=== PATIENT | male | born 1950 | race Caucasian/White ===

== ENCOUNTER → 2016-08-04 | Outpatient (CLI) | payer MEDICARE, BC | LOC: GMAJ 10:28 | PROVIDERS: ATTEND Family Medicine | DX: I10 Essential (primary) hypertension (principal); Z85.46 Personal history of malignant neoplasm of prostate ==

== ENCOUNTER 2016-12-14 06:37 | Emergency (ER) | payer MEDICARE, BC ==
[2016-12-14 07:08] VITALS: BP 148/83; TEMP 97.3; O2SAT 98
--- NOTE | 2016-12-14 07:11 | ED.PDOC ---
History of Present Illness - General Chief Complaint: Skin/Abrasion/Tear Stated Complaint: sunburn face Time Seen by Provider: 12/14/16 06:37 Source: patient Exam Limitations: no limitations - History of Present Illness Initial Comments: Link Candelaria 66 y/o male stated he was building fence a week ago and got a sunburn on his face applied lotion since incident but seems getting worse noted blisters side of neck. Timing/Duration: getting worse, other - 7 days ago Severity: moderate Location: face Improving Factors: nothing Worsening Factors: nothing Associated Symptoms: itching, other - pain Allergies/Adverse Reactions: Allergies NO KNOWN ALLERGY Allergy (Verified 08/27/15 12:43) Home Medications: Ambulatory Orders Amlodipine Besylate [Norvasc] 5 mg PO DAILY 08/27/15 Aspirin [Aspirin Childrens] 81 mg PO DAILY 08/27/15 Bupropion HCl [Bupropion HCl Xl] 300 mg PO PRN 08/31/15 Carvedilol [Coreg] 25 mg PO BID 08/31/15 Cyclobenzaprine HCl [Flexeril] 10 mg PO PRN 08/31/15 Fenofibrate [Tricor] 145 mg PO DAILY 08/31/15 Losartan Potassium & Hydrochlo [Hyzaar 100-25 mg] 1 tab PO DAILY 08/31/15 Multiple Vitamins W/ Iron [Multiple Vitamins/Iron] 1 tab PO DAILY 08/31/15 [place]-3 Fatty Acids [Fish Oil] 1,000 mg PO DAILY 08/31/15 Omeprazole [PriLOSEC Cap] 20 mg PO PRN 08/31/15 hydrOXYzine PAMOATE [Vistaril] 25 mg PO PRN 08/31/15 Triamcinolone 0.1% Oint [Kenalog 0.1% Ointment] 420 gm TOP BID #1 tube 12/14/16 Review of Systems - Review of Systems Constitutional: States: no symptoms reported EENTM: States: no symptoms reported Respiratory: States: no symptoms reported Cardiology: States: no symptoms reported Gastrointestinal/Abdominal: States: no symptoms reported Genitourinary: States: no symptoms reported Musculoskeletal: States: no symptoms reported Skin: States: see HPI Neurological: States: no symptoms reported Past Medical History (General) - Patient Medical History Hx Congestive Heart Failure: No Hx Diabetes: Yes Hx Other PMH: Yes - prostate ca Surgical History: other - robotic prostatectomy - Social History Hx Tobacco Use: No Hx Chewing Tobacco Use: No Hx Alcohol Use: No Hx Substance Use: No Hx Substance Use Treatment: No Hx Depression: No Feels Threatened In Home Enviroment: No Hx Physical Abuse: No Hx Emotional Abuse: No - Activities of Daily Living Patient Lives Alone: No - Grooming Ability: Independent Eating (Feeding) Ability: Independent Toileting Ability: Independent Family Medical History - Family History Father Hx Family Hypertension: Yes Mother Family History: Unknown Living Status: Physical Exam - Physical Exam General Appearance: Alert, No apparent distress Eyes, Ears, Nose, Throat Exam: PERRL/EOMI, normal ENT inspection, TMs normal, pharynx normal Neck: non-tender, full range of motion, supple, normal inspection Cardiovascular/Chest: normal peripheral pulses, regular rate, rhythm, no edema Back Exam: normal inspection, no CVA tenderness Extremity: normal range of motion, non-tender, normal inspection, no calf tenderness Neurologic: no motor/sensory deficits, alert, normal mood/affect, oriented x 3 Skin Problem Location: face Skin Character: erythema, scales, vesicular Lymphatic: no adenopathy Departure - Departure Clinical Impression: Sunburn of first degree Time of Disposition: 07:14 Disposition: Discharge to Home or Self Care Departure Forms: ED Discharge - Pt. Copy, Patient Portal Self Enrollment Instructions: How to Avoid Sunburn, Sunburn (Alternative Therapy), DI for Sunburn Referrals: Hayden Brand MD [Primary Care Provider] - 1-2 Weeks Prescriptions: Triamcinolone 0.1% Oint [Kenalog 0.1% Ointment] 420 gm TOP BID #1 tube Home Medications: Ambulatory Orders Amlodipine Besylate [Norvasc] 5 mg PO DAILY 08/27/15 Aspirin [Aspirin Childrens] 81 mg PO DAILY 08/27/15 Bupropion HCl [Bupropion HCl Xl] 300 mg PO PRN 08/31/15 Carvedilol [Coreg] 25 mg PO BID 08/31/15 Cyclobenzaprine HCl [Flexeril] 10 mg PO PRN 08/31/15 Fenofibrate [Tricor] 145 mg PO DAILY 08/31/15 Losartan Potassium & Hydrochlo [Hyzaar 100-25 mg] 1 tab PO DAILY 08/31/15 Multiple Vitamins W/ Iron [Multiple Vitamins/Iron] 1 tab PO DAILY 08/31/15 [place]-3 Fatty Acids [Fish Oil] 1,000 mg PO DAILY 08/31/15 Omeprazole [PriLOSEC Cap] 20 mg PO PRN 08/31/15 hydrOXYzine PAMOATE [Vistaril] 25 mg PO PRN 08/31/15 Triamcinolone 0.1% Oint [Kenalog 0.1% Ointment] 420 gm TOP BID #1 tube 12/14/16 Additional Instructions: FOLLOW UP WITH PRIMARY MD 12/22/2016 patient to call for appointment as needed
== END 2016-12-14 07:36 | disposition home or self-care (01) ==
LOC: ER 06:37
DX: L55.0 Sunburn of first degree (principal); E11.9 Type 2 diabetes mellitus without complications; Z85.46 Personal history of malignant neoplasm of prostate; Z79.899 Other long term (current) drug therapy; Z79.82 Long term (current) use of aspirin

== ENCOUNTER 2017-05-28 05:46 | Day surgery (SDC) | payer MEDICARE ==
--- NOTE | 2017-05-27 11:13 | RAD ---
EXAM DESCRIPTION: Chest,2 Views CLINICAL HISTORY: 66 years Male, preop COMPARISON: None Available TECHNIQUE: PA/lateral FINDINGS: There is no cardiac or pulmonary abnormality. The lungs are clear. There is no effusion. IMPRESSION: 1. Normal two-view chest. Electronically signed by: Leopoldo Henderson MD 05/27/2017 11:12 AM CDT
[2017-05-28] MEDS ORDERED: LACTATED RINGERS 1,000 ML ONE (06:49)
[2017-05-28] MEDS ORDERED: ceFAZolin SODIUM 1 GM VIAL ONE (06:49)
[2017-05-28] MEDS ORDERED: SODIUM CHL 0.9% 100ML MINI-BAG 100 ML IVPB ONE (06:49)
[2017-05-28] MEDS ORDERED: LIDOCAINE 1% 10 ML VIAL INJ ONE (07:00)
[2017-05-28] MEDS ORDERED: ePHEDrine SULF 50 MG/ML ONE (07:00)
[2017-05-28] MEDS ORDERED: KETOROLAC TROMETHAMINE INJ 30 MG/ML VIAL ONE (07:00)
[2017-05-28] MEDS ORDERED: PROPOFOL 200 MG/20 ML VIAL IV ONE (07:00)
[2017-05-28] MEDS ORDERED: raNITIdine HCL INJ 25 MG/ML VIAL ONE (07:00)
[2017-05-28] MEDS ORDERED: SODIUM CHLORIDE 0.9% 50 ML VIAL ONE (07:00)
[2017-05-28] MEDS ORDERED: DEXAMETHASONE INJ 10 MG/ML VIAL ONE (07:00)
[2017-05-28] MEDS ORDERED: MIDAZOLAM INJ 2 MG/2 ML VIAL ONE (08:58)
[2017-05-28] MEDS ORDERED: MORPHINE SULFATE INJ 10 MG/ML VIAL ONE (09:00)
[2017-05-28] MEDS ORDERED: BUPIVACAINE 0.5% W/EPI 30 ML VIAL INJ ONE (09:37)
[2017-05-28] MEDS ORDERED: ELECTROLYTE-A 0 ML IVS ONE (11:01)
--- NOTE | 2017-05-28 11:28 | OP ---
DATE OF PROCEDURE: 05/28/17 PREOPERATIVE DIAGNOSIS: 1. Right inguinal hernia. POSTOPERATIVE DIAGNOSIS: 1. Right inguinal hernia. PROCEDURE: 1. Repair of right inguinal hernia with Surgimesh graft. SURGEON: Camden Brody MD. ELEMENTARY SCHOOL TEACHER'S AIDE: None. ANESTHESIA: General anesthesia and local infiltration of 0.25% Marcaine with epinephrine. INDICATION: The patient is a 66-year-old male who has had a tender mass which was first noted after coughing and sneezing significantly. It is reducible, consistent with a hernia. The patient was brought to the Surgical Suite today for herniorrhaphy after the risks, benefits and alternatives to the procedure were discussed and accepted. FINDINGS: He has a large indirect inguinal hernia and a general weakness of the floor of the canal without discrete hernia. No other pathology was identified. PROCEDURE: After adequate general endotracheal anesthesia was obtained, the patient was prepped and draped in the usual sterile manner. The right lower quadrant was infiltrated with local anesthesia. An oblique incision was made with a sharp knife. Dissection was carried down through the skin and subcutaneous tissue to the external oblique fascia using electrocautery and blunt dissection. The self-retaining retractor was placed at this level. The external oblique fascia was then opened in the direction of the fibers through the external ring. When this was done, The cord was then dissected free from the external oblique fascia and the floor of the canal. A half inch Srinivas drain was placed around it for traction. The cord was then explored with the large indirect hernia sac identified and dissected free from the cord down to the level of the external inguinal ring. The nerves were retracted superiorly and inferiorly. The hernia sac was then reduced below the floor of the canal. At this point, a Surgimesh patch was introduced under the floor of the canal and sutured circumferentially with interrupted 2-0 Vicryl sutures. When this was done, the wound was irrigated with saline. The floor of the canal was noted to be bulging, but without discrete hernia, so this was imbricated with interrupted 2-0 Vicryl sutures. The Surgimesh patch was then sutured around the cord in the usual manner again with care not to suture the nerves. When this was done, the wound was irrigated with saline. Hemostasis was noted to be adequate. The cord was then placed back in position in the canal. The external oblique fascia was then closed with running 3-0 Vicryl suture. There were holes in the external oblique fascia from the retractor and these were repaired with interrupted [id number] sutures of 3-0 Vicryl. When this was done, the cord and subcutaneous tissue above, below and lateral to the incision were infiltrated with local anesthesia. The Amanda's fascia was approximated with interrupted 3-0 Chromic suture. Skin edges were approximated with skin stapler. Sterile pressure dressing was applied. The scrotum was checked for position of the testicle, which was appropriate. The patient was awakened and taken to the Recovery Room in good and stable condition. Estimated blood loss was 50 to 100 mL. All sponge, needle and instrument counts were correct. #[id number] [facility]
[2017-05-28] MEDS ORDERED: HYDROcodone 5MG/APAP 325MG 1 EA TAB ONE (11:52)
[2017-05-28 12:36] VITALS: BP 127/81; TEMP 98.1; O2SAT 95
== END 2017-05-28 13:05 | disposition home or self-care (01) ==
LOC: AMB 05:46
PROVIDERS: ATTEND Surgery
DX: K40.90 Unilateral inguinal hernia, without obstruction or gangrene, not specified as recurrent (principal); I10 Essential (primary) hypertension; K21.9 Gastro-esophageal reflux disease without esophagitis; Z79.82 Long term (current) use of aspirin; Z79.899 Other long term (current) drug therapy
CPT/HCPCS: 00830; 36415; 36416; 49505; 71020; 80048; 81001; 82948; 85025; 93005; A4216; C1781; J0690; J1100; J1885; J2250; J2270; J2780; J3490; J7050; J7120

== ENCOUNTER → 2017-07-21 | Outpatient (CLI) | payer MEDICARE ==
--- NOTE | 2017-07-21 10:33 | RAD ---
EXAM DESCRIPTION: Hip,Right 2 Views CLINICAL HISTORY: HIP PAIN COMPARISON: None. TECHNIQUE: 2 views right FINDINGS: Marked loss of joint space is observed. Subchondral cyst formation is observed in the acetabulum and femoral head. Sclerosis of the femoral head and acetabular margin observed. No evidence for fracture seen. Some femoral head osteophyte formation is noted. IMPRESSION: Severe degenerative changes are observed in the right hip. Electronically signed by: Leopoldo Henderson MD 07/21/2017 10:32 AM [facility] [place]
--- NOTE | 2017-07-21 10:34 | RAD ---
EXAM DESCRIPTION: Pelvis CLINICAL HISTORY: HIP PAIN COMPARISON: None. TECHNIQUE: AP pelvis FINDINGS: Severe degenerative changes are observed in the right hip. The left hip is unremarkable. Mild degenerative changes are observed in the pubic symphysis. No evidence of fracture is seen. Injection granulomas are observed in the region of the right buttocks. IMPRESSION: Severe degenerative changes are observed in the right hip. Electronically signed by: Leopoldo Henderson MD 07/21/2017 10:33 AM [facility]
== END ==
LOC: RAD 07:41
PROVIDERS: ATTEND Orthopaedic Surgery
DX: M25.551 Pain in right hip (principal)

== ENCOUNTER → 2017-08-28 | Outpatient (CLI) | payer MEDICARE | LOC: GMAJ 12:07 | PROVIDERS: ATTEND Family Medicine | DX: Z12.5 Encounter for screening for malignant neoplasm of prostate (principal) ==

== ENCOUNTER 2017-09-23 06:06 | Day surgery (SDC) | payer MEDICARE ==
[~2017-09-23 06:06] MED LIST: LACTATED RINGERS 1,000 ML ONE
[2017-09-23] MEDS ORDERED: methylPREDNISolone ACETATE 80 MG/ML VIAL ONE (06:35)
[2017-09-23] MEDS ORDERED: LIDOCAINE 1% W/ EPINEPHRINE 20 ML VIAL INJ ONE (06:35)
[2017-09-23] MEDS ORDERED: BUPIVACAINE 0.25% INJ 30 ML VIAL INJ ONE (06:35)
[2017-09-23] MEDS ORDERED: fentaNYL CITRATE INJ 50 MCG/ML AMP ONE (07:52)
--- NOTE | 2017-09-23 08:40 | OP ---
DATE OF PROCEDURE: 09/23/17 PREOPERATIVE DIAGNOSIS: 1. Osteoarthritis of the right hip. POSTOPERATIVE DIAGNOSIS: 1. Osteoarthritis of the right hip. PROCEDURE: 1. Injection of right hip. SURGEON: Neil Beatty MD. TOUR COUNSELOR: Elvin Hinson CST, SA-C. ANESTHESIA: Conscious sedation. COMPLICATIONS: None. FINDINGS: Severe arthritis of the right hip. INDICATION: The patient has a history of severe hip pain associated with his arthritis. Because of his arthritis, he requested injection. After discussing the risks, benefits and alternatives to that, the patient has given informed consent for that. PROCEDURE: The patient was brought to the Operating Room and placed in supine position. Conscious sedation was administered and the leg was flexed, abducted and externally rotated. The groin was prepped and fluoroscopic imaging was used to confirm needle placement into the hip joint through a medial portal. Once placement had been confirmed, a combination of lidocaine and Depo-Medrol were injected into the joint. After injection, the needle was withdrawn. Pressure was held on the injection site. A sterile band-aid was placed. The patient was then taken back to the Day Surgery Unit. POSTOPERATIVE INSTRUCTIONS: The patient will be weight-bearing as tolerated. The patient will followup with us in about 10 days. #[id number] [facility]
[2017-09-23] MEDS ORDERED: LIDOCAINE 1% 10 ML VIAL INJ ONE (10:00)
[2017-09-23] MEDS ORDERED: PROPOFOL 200 MG/20 ML VIAL IV ONE (10:00)
[2017-09-23 10:13] VITALS: BP 133/75; TEMP 98.1; O2SAT 97
== END 2017-09-23 10:20 | disposition home or self-care (01) ==
LOC: AMB 06:06
PROVIDERS: ATTEND Orthopaedic Surgery
DX: M16.11 Unilateral primary osteoarthritis, right hip (principal); I10 Essential (primary) hypertension; I25.10 Atherosclerotic heart disease of native coronary artery without angina pectoris; Z85.46 Personal history of malignant neoplasm of prostate; Z79.899 Other long term (current) drug therapy
CPT/HCPCS: 01200; 20610; 76000; 87070; J1030; J3010; J3490; J7120

== ENCOUNTER 2017-12-08 05:44 | Day surgery (SDC) | payer MEDICARE ==
[2017-12-08] MEDS ORDERED: LACTATED RINGERS 1,000 ML ONE (06:53)
[2017-12-08] MEDS ORDERED: PROPOFOL 200 MG/20 ML VIAL IV ONE (10:00)
[2017-12-08] MEDS ORDERED: LIDOCAINE 1% W/ EPINEPHRINE 20 ML VIAL INJ ONE (12:24)
[2017-12-08] MEDS ORDERED: methylPREDNISolone ACETATE 80 MG/ML VIAL ONE (12:25)
[2017-12-08] MEDS ORDERED: BUPIVACAINE 0.25% INJ 30 ML VIAL INJ ONE (12:25)
[2017-12-08 15:17] VITALS: BP 127/75; TEMP 97; O2SAT 95
--- NOTE | 2017-12-09 09:20 | OP ---
DATE OF PROCEDURE: 12/08/17 PREOPERATIVE DIAGNOSIS: 1. Severe osteoarthritis. POSTOPERATIVE DIAGNOSIS: 1. Severe osteoarthritis. PROCEDURE: 1. Intraarticular injection. SURGEON: Neil Beatty MD. GRAB JACK WORKER: Elvin Hinson CST, SA-C. ANESTHESIA: Conscious sedation. COMPLICATIONS: None. FINDINGS: Severe osteoarthritis. INDICATION: The patient has a long history of severe pain that has been getting progressively worse. He has had pain that causes dysfunction in his daily life. Because of his ongoing discomfort and failure of more conservative measures, he has requested intraarticular injection. After discussing the risks , benefits and alternatives to that, the patient has given informed consent for that. PROCEDURE: The patient was brought to the Operating Room and placed in supine position. Conscious sedation was administered and the leg was flexed, abducted and externally rotated. The groin was prepped and fluoroscopic imaging was used to confirm needle placement into the hip joint through a medial portal. Once placement had been confirmed, a combination of lidocaine and Depo-Medrol were injected into the joint. After injection, the needle was withdrawn. Pressure was held on the injection site. A sterile band-aid was placed. The patient was then taken back to the Day Surgery Unit. POSTOPERATIVE INSTRUCTIONS: The patient will be weight-bearing as tolerated. The patient will followup with us in 10 days. #[id number] [facility]
== END 2017-12-08 13:05 | disposition home or self-care (01) ==
LOC: AMB 05:44
PROVIDERS: ATTEND Orthopaedic Surgery
DX: M16.11 Unilateral primary osteoarthritis, right hip (principal); I10 Essential (primary) hypertension; E11.9 Type 2 diabetes mellitus without complications; K21.9 Gastro-esophageal reflux disease without esophagitis; Z85.46 Personal history of malignant neoplasm of prostate; Z90.79 Acquired absence of other genital organ(s); Z79.82 Long term (current) use of aspirin; Z79.899 Other long term (current) drug therapy
CPT/HCPCS: 01200; 20611; 76000; J1030; J3490; J7120

== ENCOUNTER → 2018-01-06 | Outpatient (CLI) | payer MEDICARE | LOC: LAB.O 08:53 | PROVIDERS: ATTEND Orthopaedic Surgery | DX: Z01.818 Encounter for other preprocedural examination (principal) ==

== ENCOUNTER → 2018-01-25 | Outpatient (CLI) | payer MEDICARE ==
--- NOTE | 2018-01-25 11:11 | RAD ---
EXAM DESCRIPTION: Hip,Right 2 Views CLINICAL HISTORY: PAIN IN RIGHT HIP COMPARISON: 21 July 2017 TECHNIQUE: 2 views right FINDINGS: Loss of joint space is observed. Some sclerosis of the articular surfaces is observed. Subchondral cyst formation is observed in the acetabulum and femoral head. No fracturing is detected. Degenerative changes are observed in the lower lumbar spine. IMPRESSION: Moderately severe degenerative arthritis is observed in the hip. There is been no significant interval change. Electronically signed by: Leopoldo Henderson MD 01/25/2018 11:02 AM CDT
== END ==
LOC: RAD 08:00
PROVIDERS: ATTEND Orthopaedic Surgery
DX: M25.551 Pain in right hip (principal)

== ENCOUNTER 2018-01-26 05:54 | Inpatient (IN) | payer MEDICARE ==
--- NOTE | 2018-01-25 11:26 | HP ---
CHIEF COMPLAINT: Right hip pain. HISTORY OF PRESENT ILLNESS: Mr. Candelaria is a 67-year-old male with a history of severe pain in the hip. He has been getting progressively worse. He has had injection in the hip, anti-inflammatories and walks with an assistive device. However, he has failed to gain relief. Because of his ongoing symptoms , he has requested operative intervention. After discussing the risks, benefits and alternatives to total hip arthroplasty, the patient has given informed consent. PAST SURGICAL HISTORY: None. MEDICATIONS: 1. Amlodipine. 2. Cyclobenzaprine. 3. Fish oil. ALLERGIES: NO KNOWN DRUG ALLERGIES. CODE STATUS: Full code. IMMUNIZATIONS: Up to date. FAMILY HISTORY: None pertinent to today's complaint. SOCIAL HISTORY: The patient does not smoke or use any illicit drugs. He does drink on occasion. REVIEW OF SYSTEMS: Negative except as indicated in the History of Present Illness. PHYSICAL EXAMINATION: VITAL SIGNS: Blood pressure 150/82. Pulse 62. Height 6'1". Weight 214 pounds. MENTAL STATUS: The patient is awake, alert, and is able to give a good history and participate in the physical. The patient is oriented to person, place and time. SKIN: Normal tone and turgor. HEENT: Normocephalic, atraumatic. Pupils equal, round and reactive. Mucosal membranes are moist. NECK: Normal range of motion. No thyromegaly, no lymphadenopathy. CHEST: Normal respiratory excursion. CARDIAC: Regular rate and rhythm. No murmurs, rubs or gallops. MUSCULOSKELETAL: The bilateral upper extremities show full active range of motion. He has no deformity. There is no crepitus. Sensation is intact. They are warm and well perfused. The left lower extremity shows full range of motion of the hip and knee without significant discomfort. He has intact sensation. He has no malalignment. Strength is 5/5. The right lower extremity shows severe pain with flexion beyond about 90 degrees of the hip. He has 0 internal rotation and obligate external rotation. Abduction is about 30 degrees. He walks with an antalgic gait and also with an assistive device. Strength is 5/5 in the lower extremity. There is no obvious malalignment. IMAGING: X-rays show severe endstage arthritis. ASSESSMENT: Arthritis. PLAN: The plan at this point is for total hip arthroplasty. We have discussed the risks, benefits, and alternatives to that and the patient has given informed consent. #[id number] [facility]
[2018-01-26] MEDS ORDERED: LACTATED RINGERS 1,000 ML ONE (05:55)
[2018-01-26] MEDS ORDERED: VANCOMYCIN HCL INJ 1,000 MG VIAL IVPB ONE ×4 (05:55→20:19)
[2018-01-26] MEDS ORDERED: SODIUM CHL 0.9% 100ML MINI-BAG 100 ML IVPB ONE (05:55)
[2018-01-26] MEDS ORDERED: TRANEXAMIC ACID 1,000 MG/10 ML VIAL ONE ×2 (05:55→05:56)
[2018-01-26] MEDS ORDERED: ceFAZolin SODIUM 1 GM VIAL ONE ×2 (05:55→06:22)
[2018-01-26] MEDS ORDERED: SODIUM CHLORIDE 0.9% 100ML 100 ML IVPB ONE (05:56)
[2018-01-26] MEDS ORDERED: SODIUM CHLORIDE 0.9% 250ML 250 ML ONE ×3 (05:56→20:18)
[2018-01-26] MEDS ORDERED: MORPHINE SULF *EPIDURAL* 1 MG/ML VIAL ONE (06:21)
[2018-01-26] MEDS ORDERED: fentaNYL CITRATE INJ 50 MCG/ML AMP ONE (06:21)
[2018-01-26] MEDS ORDERED: ACETAMINOPHEN IV 1000MG 100 ML ONE (06:21)
[2018-01-26] MEDS ORDERED: MIDAZOLAM INJ 2 MG/2 ML VIAL ONE (06:21)
[2018-01-26] MEDS ORDERED: ROCURONIUM BROMIDE 10 MG/ML VIAL ONE (06:21)
[2018-01-26] MEDS ORDERED: BUPIVACAINE 0.5% W/EPI 30 ML VIAL INJ ONE (06:22)
[2018-01-26] MEDS ORDERED: PROMETHAZINE HCL INJ 12.5 MG in SODIUM CHLORIDE 0.9% 50ML 50 ML IVPB PRN (06:46)
[2018-01-26] MEDS ORDERED: TRANEXAMIC ACID INJ 1,000 MG in SODIUM CHLORIDE 0.9% 100ML 100 ML IVPB ONE (06:46)
[2018-01-26] MEDS ORDERED: ZOLPIDEM TARTRATE 5 MG TAB PO PRN (06:46)
[2018-01-26] MEDS ORDERED: SODIUM CHLORIDE 0.9% (FLUSH) 10 ML SYG IV PRN (06:46)
[2018-01-26] MEDS ORDERED: ACETAMINOPHEN 500 MG TAB PO PRN (06:46)
[2018-01-26] MEDS ORDERED: NALOXONE HCL INJ 0.4 MG/ML VIAL IV PRN (06:46)
[2018-01-26] MEDS ORDERED: ACETAMINOPHEN 325 MG TAB PO PRN (06:46)
[2018-01-26] MEDS ORDERED: MORPHINE SULFATE INJ 10 MG/ML VIAL IM PRN (06:46)
[2018-01-26] MEDS ORDERED: BISACODYL SUPPOSITORY 10 MG PR PRN (06:46)
[2018-01-26] MEDS ORDERED: TEMAZEPAM 15 MG CAP PO PRN (06:46)
[2018-01-26] MEDS ORDERED: traMADol HCL 50 MG TAB PO PRN (06:46)
[2018-01-26] MEDS ORDERED: ALUMINUM & MAGNESIUM HYDROXIDE 30 ML UD PO PRN (06:46)
[2018-01-26] MEDS ORDERED: PROMETHAZINE HCL INJ 25 MG in SODIUM CHLORIDE 0.9% 50ML 50 ML IVPB PRN (06:46)
[2018-01-26] MEDS ORDERED: MAGNESIUM HYDROXIDE 30 ML UD PO PRN (06:46)
[2018-01-26] MEDS ORDERED: BENZOCAINE-MENTH LOZ (CEPACOL) 1 EA LOZ MT PRN (06:46)
[2018-01-26] MEDS ORDERED: DEX 5% W/NACL 0.45% 1000ML 1,000 ML IVS PRN (06:46)
[2018-01-26] MEDS ORDERED: PHENYLEPHRINE INJ 1ML 10 MG/ML VIAL ONE (07:00)
[2018-01-26] MEDS ORDERED: METOCLOPRAMIDE HCL INJ 10 MG/2 ML VIAL ONE (07:00)
[2018-01-26] MEDS ORDERED: MORPHINE PCA 1 MG/ML 100 ML BAG IVPB SCH (07:00)
[2018-01-26] MEDS ORDERED: raNITIdine HCL INJ 25 MG/ML VIAL ONE (07:00)
[2018-01-26] MEDS ORDERED: ePHEDrine SULF 50 MG/ML ONE (07:00)
[2018-01-26] MEDS ORDERED: SODIUM CHLORIDE 0.9% 50 ML VIAL ONE (07:00)
[2018-01-26] MEDS ORDERED: PROPOFOL 200 MG/20 ML VIAL IV ONE (07:00)
[2018-01-26] MEDS ORDERED: DEXAMETHASONE INJ 10 MG/ML VIAL ONE (07:00)
[2018-01-26] MEDS: VANCOMYCIN HCL INJ 1,000 MG VIAL IVPB ONE ×2 (07:48→09:03)
[2018-01-26] MEDS: BUPIVACAINE 0.25% W/EPI 50 ML VIAL INJ ONE ×2 (07:48→09:31)
[2018-01-26] MEDS: ceFAZolin SODIUM 1 GM VIAL ONE ×2 (07:48→09:03)
[2018-01-26] MEDS ORDERED: ELECTROLYTE-A 1,000 ML IVS ONE ×2 (08:21→09:01)
[2018-01-26] MEDS: ONDANSETRON INJ 4 MG/2 ML VIAL IV PRN (10:20)
[2018-01-26] MEDS: HYDROmorphone HCL INJ 2 MG/ML VIAL ONE ×2 (10:35→10:52)
--- NOTE | 2018-01-26 11:28 | RAD ---
EXAM DESCRIPTION: Pelvis (accession [id number]), Hip,Right 2 Views (accession [id number]) CLINICAL HISTORY: 67 years Male, post op COMPARISON: July 21, 2017 FINDINGS: A single view of the pelvis demonstrates right total hip replacement with satisfactory alignment. This prosthesis is new since prior study. Milder degenerative changes involving the opposite left hip are noted. Right femoral head and neck have been resected. Periprosthetic fractures are not apparent. Two views of the right hip demonstrate total hip prosthesis has been placed with satisfactory alignment with no evidence of dislocation or periprosthetic fracture. Trochanteric region and proximal femoral shaft are intact. Soft tissue gas from surgical placement is noted. IMPRESSION: Satisfactory postoperative imaging of right hip replacement and intact pelvis and proximal femoral shaft. Electronically signed by: Shad Doty MD 01/26/2018 11:27 AM CDT
--- NOTE | 2018-01-26 11:28 | RAD ---
EXAM DESCRIPTION: Pelvis (accession [id number]), Hip,Right 2 Views (accession [id number]) CLINICAL HISTORY: 67 years Male, post op COMPARISON: July 21, 2017 FINDINGS: A single view of the pelvis demonstrates right total hip replacement with satisfactory alignment. This prosthesis is new since prior study. Milder degenerative changes involving the opposite left hip are noted. Right femoral head and neck have been resected. Periprosthetic fractures are not apparent. Two views of the right hip demonstrate total hip prosthesis has been placed with satisfactory alignment with no evidence of dislocation or periprosthetic fracture. Trochanteric region and proximal femoral shaft are intact. Soft tissue gas from surgical placement is noted. IMPRESSION: Satisfactory postoperative imaging of right hip replacement and intact pelvis and proximal femoral shaft. Electronically signed by: Shad Doty MD 01/26/2018 11:27 AM CDT
[2018-01-26] MEDS: IV SET AND CAP CHANGE INJ INJ SCH (12:30)
[2018-01-26] MEDS: CELECOXIB 100 MG CAP PO SCH ×2 (12:33→17:05)
[2018-01-26] MEDS: MAGNESIUM OXIDE 400 MG TAB PO SCH (12:34)
[2018-01-26] MEDS ORDERED: ceFAZolin SODIUM 2 GRAMS PREMI 50 ML IVPB ONE ×2 (15:25→20:19)
[2018-01-26] MEDS: ceFAZolin SODIUM 2 GRAMS PREMI 2 GM in PREMIX BAG 1 BAG IVPB SCH ×2 (15:30→23:52)
[2018-01-26] MEDS: VANCOMYCIN HCL INJ 1,000 MG in SODIUM CHLORIDE 0.9% 250ML 250 ML IVPB SCH (18:04)
--- NOTE | 2018-01-26 19:32 | PCM.CORE ---
Physician DVT/VTE - Prophylaxis Currently: Patient already on anticoagulation therapy - Nurse DVT Assessment & Total Each Risk Factor Represents 5 Points: Elective Arthtroplasty Each Risk Factor Represents 2 Points: Age 60-74 Each Risk Factor is 1 Point: Obesity (BMI >25) DVT Assessment Score: 8 - 5 or more Very High Risk Treatments: Early Ambulation *, Sequential Compression Device Pharmacological: Enoxaparin 30mg SQ BID
[2018-01-26] MEDS ORDERED: hydrOXYzine PAMOATE 25 MG CAP PO SCH (20:30)
[2018-01-26] MEDS ORDERED: CARVEDILOL 12.5 MG TAB ONE (20:31)
[2018-01-26] MEDS ORDERED: ASPIRIN (ENTERIC COATED) 81 MG TAB PO ONE (20:32)
[2018-01-26] MEDS: ASPIRIN (CHEWABLE) 81 MG TAB PO SCH (20:36)
[2018-01-26] MEDS: DOCUSATE CALCIUM 240 MG CAP PO SCH (20:36)
[2018-01-26] MEDS: OMEPRAZOLE CAP 20 MG CAP PO SCH (20:36)
[2018-01-26] MEDS: NON-FORMULARY MEDICATION 1 EA MIS (Fenofibrate [Tricor] 145 MG) PO SCH (20:41)
[2018-01-26] MEDS ORDERED: NON-FORMULARY MEDICATION 1 EA MIS (Carvedilol [Coreg] 25 MG) PO SCH (21:00)
--- NOTE | 2018-01-26 21:57 | CONS ---
DATE OF CONSULTATION: 01/26/18 SUPERVISING PHYSICIAN: Hayden Brand M.D. REASON FOR CONSULTATION: Total right hip arthroplasty. HISTORY OF PRESENT ILLNESS: Mr. Candelaria is a 67 year-old male patient that was admitted today for an elective total right hip arthroplasty. He has a longstanding history of right hip pain that had progressively worsened over the last several months. He had tried multiple treatments with conservative measures such as injections and antiinflammatories. His pain had progressed to the point where he was having to use an assistive device and was having difficulty with activities of daily living. Given that he was failing to get any significant response to treatment in the outpatient setting, he requested operative intervention. He was, as noted above, admitted for an elective right hip arthroplasty. He had no intraoperative complications and was seen immediately postoperative state in stable condition. PAST MEDICAL HISTORY: 1. Hyperlipidemia. 2. Hypertension. 3. Prostate cancer diagnosed in 2007 with surgical cure. PAST SURGICAL HISTORY: 1. Hernia repair in 2018. 2. Right inguinal. 3. Prostatectomy in 2007. HOME MEDICATIONS: 1. Vistaril 25 mg p.r.n. 2. Prilosec 20 mg as needed. 3. Fish oil 1,000 mg daily. 4. Multivitamins with iron 1 tablet daily. 5. Hyzaar 100/25 mg 1 tablet daily. 6. TriCor 145 mg daily. 7. Flexeril 10 mg as needed. 8. Carvedilol 25 mg b.i.d. 9. Bupropion 300 mg daily. 10. Aspirin 81 mg daily. 11. Amlodipine 5 mg daily. ALLERGIES: FAMILY HISTORY: Positive for lung and colon cancer. SOCIAL HISTORY: The patient is retired. He is . Lives in [place]. He has never smoked tobacco and drinks a glass of wine throughout the week. Denies any illicit drug use. REVIEW OF SYSTEMS: CONSTITUTIONAL: Denies generalized weakness, malaise, weight change. HEENT: No reported nasal congestion, sinus headaches, ear aches, sore throat. CHEST: No cough, wheezing or shortness of breath. CARDIOVASCULAR: No reported chest pains, edema, palpitations or syncopal episodes. ABDOMEN: No nausea, vomiting, diarrhea, constipation or abdominal pains. EXTREMITIES: As noted in history of present illness. NEUROLOGIC: No reported ataxia, seizures, syncopal episodes or other neurological deficits. PHYSICAL EXAMINATION: VITAL SIGNS: Temperature 97, pulse 75, blood pressure 114/70, respirations 14, satting 98% on nasal cannula at 2 liters. Admission weight 97.0 kg. GENERAL: The patient is resting comfortably in bed, appears to be in no acute distress. He has good pain control. He is alert. HEENT: Tympanic membranes are clear bilaterally. Oropharynx is pink and moist without any lesions. NECK: Supple, non-tender with full range of motion. No jugular venous distention. CHEST: Clear to auscultation bilaterally without any rhonchi, wheezing or rales. HEART: Regular rate and rhythm without appreciable murmurs, gallops, or rubs. ABDOMEN: Soft, non-tender with positive bowel sounds. EXTREMITIES: Right hip has a dressing in place that is clean and dry. Distally pulses are strong with capillary refill brisk. NEUROLOGIC: He is alert and oriented times three. LABORATORY: H&H postoperatively is pending. RADIOLOGY: Pelvis and hip x-ray postoperatively per radiology interpretation shows satisfactory postoperative imaging of right hip replacement and intact pelvis and proximal femoral shaft. ASSESSMENT: 1. Immediate postoperative day zero for elective total right hip arthroplasty performed by Dr.Michael Beatty. 2. Severe hip pain failing to respond to outpatient treatment measures requiring intraoperative measures as noted in #1. 3. History of hypertension. 4. History of hyperlipidemia. 5. History of prostate cancer in 2007 diagnosed and treated to cure with surgery. PLAN: The patient is going to be followed in his postoperative phase through physical therapy and rehabilitation. Will defer management of the physical therapy and rehabilitation to the Physical Therapy department and Dr. Beatty. Will monitor his blood pressure as needed and resume his home medications once he is started on an oral diet and as appropriate. Will anticipate his length of stay to be at least 2 to 3 days. Discharge plan is in place. Will continue making plans for outpatient treatment. Will continue to monitor until discharge. Until then, will continue to monitor and treat appropriately. #[id number] [facility]
[2018-01-26] MEDS: ENOXAPARIN SODIUM 30 MG/0.3 ML SYG SUBCU SCH (22:32)
[2018-01-27] MEDS: MORPHINE SULFATE INJ 10 MG/ML VIAL IV PRN ×3 (02:21→10:46)
[2018-01-27] MEDS: VANCOMYCIN HCL INJ 1,000 MG in SODIUM CHLORIDE 0.9% 250ML 250 ML IVPB SCH (05:47)
[2018-01-27] MEDS ORDERED: ceFAZolin SODIUM 2 GRAMS PREMI 50 ML IVPB ONE (07:53)
[2018-01-27] MEDS: CELECOXIB 100 MG CAP PO SCH ×2 (08:26→16:53)
[2018-01-27] MEDS: ceFAZolin SODIUM 2 GRAMS PREMI 2 GM in PREMIX BAG 1 BAG IVPB SCH (08:26)
[2018-01-27] MEDS ORDERED: HYDROCHLO PO SCH (09:00)
[2018-01-27] MEDS ORDERED: LOSARTAN POTASSIUM PO SCH (09:00)
[2018-01-27] MEDS ORDERED: [UNRECOGNIZED DRUG - OTHER] PO SCH (09:00)
[2018-01-27] MEDS: Wellbutrin XL 150 MG TAB PO SCH (09:58)
[2018-01-27] MEDS: hydroCHLOROthiazide 25 MG TAB PO SCH (09:59)
[2018-01-27] MEDS: CARVEDILOL 12.5 MG TAB PO SCH ×2 (09:59→20:59)
[2018-01-27] MEDS: MULTIPLE VITAMINS W/ MINERALS 1 EA TAB PO SCH (09:59)
[2018-01-27] MEDS: LOSARTAN POTASSIUM 100 MG TAB PO SCH (09:59)
[2018-01-27] MEDS: MAGNESIUM OXIDE 400 MG TAB PO SCH (09:59)
[2018-01-27] MEDS: ENOXAPARIN SODIUM 30 MG/0.3 ML SYG SUBCU SCH ×2 (09:59→20:59)
[2018-01-27] MEDS: amLODIPine BESYLATE 5 MG TAB PO SCH (09:59)
[2018-01-27] MEDS: FATTY ACIDS PO SCH (10:04)
[2018-01-27] MEDS: OMEGA PO SCH (10:04)
[2018-01-27] MEDS: CYCLOBENZAPRINE HCL 10 MG TAB PO PRN (12:50)
--- NOTE | 2018-01-27 15:42 | PN ---
DATE: 01/26/18 SUBJECTIVE: Postoperative check. Mr. Candelaria is doing really well and he has no complaints. OBJECTIVE: He is afebrile. Vital signs are stable. Dressing is clean, dry and intact. ASSESSMENT: 1. Status post total hip arthroplasty. PLAN: At this point, get him up and start him walking tomorrow. [facility][id number] [facility]
--- NOTE | 2018-01-27 15:44 | PN ---
DATE: 01/27/18 SUBJECTIVE: Mr. Candelaria is up to a chair and he has already ambulated today.. OBJECTIVE: He is afebrile. Vital signs are stable. Dressing is clean, dry and intact. ASSESSMENT: 1. Status post total hip arthroplasty. PLAN: At this point, continue him on with his weightbearing status and ambulation. #[id number] [facility]
--- NOTE | 2018-01-27 16:40 | OP ---
DATE OF PROCEDURE: 01/26/18 PREOPERATIVE DIAGNOSIS: 1. Osteoarthritis of the right hip. POSTOPERATIVE DIAGNOSIS: 1. Osteoarthritis of the right hip. PROCEDURE: 1. Right total hip arthroplasty. SURGEON: Neil Beatty M.D. POWDERMAN: Elvin Hinson CST, -[place]. ANESTHESIA: General anesthesia. COMPLICATIONS: None. FINDINGS: Severe osteoarthritis of the hip. INDICATION FOR PROCEDURE: Mr. Candelaria has a long history of progressively worsening pain in the hip. He has had difficulty with ambulation and now is dependent on an assistive device. He has had conservative measures, however he has failed to gain relief. Because of his failure of relief he has requested operative intervention. After discussing the risks, benefits, and alternatives to total hip arthroplasty he has given informed consent. DESCRIPTION OF PROCEDURE: The patient was brought to the Operating Room and placed in the supine position. General anesthesia was induced and the patient was transitioned into the left lateral decubitus position. Following positioning, the leg and hemipelvis were sterilely prepped and draped. Following prepping and draping, an incision was made in line with the femur directly over the greater trochanter and extending proximally and distally. Dissection was carried down to the iliotibial band which was sharply incised in line with the fibers. The abductor musculature was identified and the anterior one third was elevated. A capsulotomy was performed and the hip was dislocated. A primary femoral neck cut was made and the acetabulum was exposed. The labral tissue was removed and the acetabular fossa and the cotyloid notch were identified. The acetabulum was reamed sequentially to a size 57 reamer so that a size 58 cup could be impacted. Once a bleeding bony bed was achieved, a trial cup was placed. The trial cup was seated well and it was removed. The final cup implant was impacted. Two screws were used to augment the fixation. A liner was placed. The hip was externally rotated and the femoral canal was identified. Following identification of the femoral canal , the canal was sequentially reamed and broached. It was broached to a size 10 and a calcar reamer was used to flatten the calcar. A trial reduction was performed using a neutral neck and it was found to be stable after reduction with no pending dislocation or impingement. The leg lengths were confirmed. The hip was dislocated. The broach was removed and the final component was impacted into place. The head was impacted and the hip was reduced. It was then taken through a range of motion. There was no evidence of impingement or pending dislocation. The leg lengths appeared to be equal. The wound was very thoroughly irrigated and the abductor musculature was reapplied to the bone in an anatomic fashion. The wound was then closed with reapproximation of the IT band. The skin was closed with a combination of running and interrupted subcuticular stitches. Sterile dressings were placed. The patient was turned to the supine position and awakened from anesthesia, and taken to recovery. POSTOPERATIVE: Mr. Candelaria will be partial weightbearing on postoperative day 1. COMPONENTS: Mercedes titanium cup size 58 with a 36 mm head, 10 degree liner and a size 10 secure fit stem. #[id number] [facility]
--- NOTE | 2018-01-27 17:30 | PN ---
SUPERVISING PHYSICIAN: Hayden Brand MD DATE: 01/27/18 SUBJECTIVE: The patient is doing well with pain control. He remains afebrile. He has had no shortness of breath or chest pains. He has been able to participate with physical therapy. OBJECTIVE: Vital Signs: Temperature 97.8, pulse 82, blood pressure 112/63, respirations 18, saturation 95% on room air. I&O: Negative balance of 700 with 1050 in and 1750 out. Weight 97.0 kg. CHEST: Lungs clear to auscultation. HEART regular rate and rhythm without rubs or murmurs. ABDOMEN soft, non-tender , positive bowel sounds. EXTREMITIES: Right hip has a dressing remaining in place, it is clean and dry. No signs of infection or edema. Distally pulses are strong. Capillary refill brisk. NEUROLOGIC: He is alert and oriented x 3. LABORATORY: Postoperative hemoglobin and hematocrit at 12.5 and 36.5. ASSESSMENT: 1. Postoperative day #2 for elective total right hip arthroplasty.. 2. History of severe hip pain failing to respond to outpatient treatment measures requiring intraoperative measures as noted in #1. 3. History of hypertension, stable, 4. History of hyperlipidemia. 5. History of prostate cancer in 2007 diagnosed and treated to cure with surgery. PLAN: I will continue to follow the patient as he continues with his rehab efforts and physical therapy. He is doing well. Will anticipate discharge hopefully Thursday or Thursday. At this point, discharge planning is in place and consists of continued rehab with home health through [facility]. Will continue to monitor the patient and defer orthopedic management and physical therapy to Dr. Beatty and physical therapy. Until stable and be abled to be discharged and met his goals, he will continue to be monitored and treat appropriately. [facility][id number] [facility]
[2018-01-27] MEDS: ASPIRIN (CHEWABLE) 81 MG TAB PO SCH (20:58)
[2018-01-27] MEDS: OMEPRAZOLE CAP 20 MG CAP PO SCH (20:59)
[2018-01-27] MEDS: DOCUSATE CALCIUM 240 MG CAP PO SCH (20:59)
[2018-01-27] MEDS: NON-FORMULARY MEDICATION 1 EA MIS (Fenofibrate [Tricor] 145 MG) PO SCH (20:59)
[2018-01-28] MEDS ORDERED: hydrOXYzine PAMOATE 25 MG CAP PO PRN (01:53)
[2018-01-28] MEDS: HYDROcodone 5MG/APAP 325MG 1 EA TAB PO PRN ×3 (05:06→20:22)
[2018-01-28] MEDS: CYCLOBENZAPRINE HCL 10 MG TAB PO PRN ×2 (05:10→16:20)
[2018-01-28] MEDS: ONDANSETRON INJ 4 MG/2 ML VIAL IV PRN (07:42)
[2018-01-28] MEDS ORDERED: HYDROCORTISONE 2.5% TOP PRN (08:32)
[2018-01-28] MEDS ORDERED: CETIRIZINE HCL 10 MG TAB PO ONE (08:49)
[2018-01-28] MEDS ORDERED: raNITIdine HCL INJ 25 MG/ML VIAL ONE ×2 (08:54→16:25)
[2018-01-28] MEDS ORDERED: SODIUM CHLORIDE 0.9% 50ML 50 ML ONE ×2 (08:57→16:25)
[2018-01-28] MEDS ORDERED: hydrOXYzine PAMOATE 25 MG CAP PO SCH (09:00)
[2018-01-28] MEDS: CELECOXIB 100 MG CAP PO SCH ×2 (09:04→16:19)
[2018-01-28] MEDS: MULTIPLE VITAMINS W/ MINERALS 1 EA TAB PO SCH (09:05)
[2018-01-28] MEDS: CARVEDILOL 12.5 MG TAB PO SCH ×2 (09:05→20:23)
[2018-01-28] MEDS: amLODIPine BESYLATE 5 MG TAB PO SCH (09:05)
[2018-01-28] MEDS: hydroCHLOROthiazide 25 MG TAB PO SCH (09:05)
[2018-01-28] MEDS: MAGNESIUM OXIDE 400 MG TAB PO SCH (09:05)
[2018-01-28] MEDS: CETIRIZINE HCL 10 MG TAB PO SCH (09:05)
[2018-01-28] MEDS: raNITIdine HCL INJ 50 MG in SODIUM CHLORIDE 0.9% 50ML 50 ML IVPB SCH ×2 (09:06→16:34)
[2018-01-28] MEDS: Wellbutrin XL 150 MG TAB PO SCH (09:06)
[2018-01-28] MEDS: LOSARTAN POTASSIUM 100 MG TAB PO SCH (09:06)
[2018-01-28] MEDS: FATTY ACIDS PO SCH (10:19)
[2018-01-28] MEDS: OMEGA PO SCH (10:19)
[2018-01-28] MEDS: SODIUM CHLORIDE 0.9% (FLUSH) 10 ML SYG IV SCH ×2 (10:19→20:23)
[2018-01-28] MEDS: ENOXAPARIN SODIUM 30 MG/0.3 ML SYG SUBCU SCH ×2 (10:20→22:18)
[2018-01-28] MEDS: DOCUSATE CALCIUM 240 MG CAP PO SCH (20:23)
[2018-01-28] MEDS: OMEPRAZOLE CAP 20 MG CAP PO SCH (20:23)
[2018-01-28] MEDS: ASPIRIN (CHEWABLE) 81 MG TAB PO SCH (20:23)
[2018-01-28] MEDS ORDERED: FENOFIBRIC ACID 135 MG CAP PO SCH (21:00)
--- NOTE | 2018-01-28 22:38 | PN ---
DATE: 01/28/18 SUPERVISING PHYSICIAN: Hayden Brand M.D. SUBJECTIVE: The patient continues to progress well with his physical therapy. He has had good pain control. He has had no complications. No nausea, vomiting and he has remained afebrile. The patient also has a complaint of some rashes and irritation secondary to tape which he says is common for him, although he did not list it as an allergy initially on admission. OBJECTIVE: VITAL SIGNS: Temperature 97.9, pulse 75, blood pressure 111/63, respirations 18, satting 94% on room air. I's and O's show a negative balance of 1250 with 900 in, 2150 out. Weight 97.0 kg. CHEST: Clear to auscultation. HEART: Regular rate and rhythm. ABDOMEN: Soft, non-tender. Positive bowel sounds. EXTREMITIES: No clubbing, cyanosis or edema. On the right hip remains an island dressing in place which is clean and dry. No signs of infection. There are some areas of irritation and redness due to tape rash. NEUROLOGIC: He is alert and oriented times three. ASSESSMENT: 1. Postoperative day #3 for elective total right hip arthroplasty. 2. History of severe hip pain failing to respond to outpatient treatment measures requiring intraoperative measures as noted in #1. 3. History of hypertension, stable. 4. History of hyperlipidemia. 5. History of prostate cancer in 2007 diagnosed and treated to cure with surgery. 6. Contact dermatitis secondary to adhesive tape. PLAN: Will continue to follow the patient through his rehabilitation and physical therapy efforts. Blood pressure has been staying stable. In regards to his rash with the tape, I went ahead and started him on some Zantac and Zyrtec for H1 and H2 blockade along with continued Benadryl as needed and Atarax. Will anticipate hopefully discharging to maybe Swing Bed by Thursday or Thursday. Until then, will continue to monitor and treat appropriately until the patient has met his goals. [facility][id number] [facility]
[2018-01-29] MEDS ORDERED: SODIUM CHLORIDE 0.9% 50ML 50 ML ONE ×2 (01:08→08:11)
[2018-01-29] MEDS ORDERED: raNITIdine HCL INJ 25 MG/ML VIAL ONE ×2 (01:08→08:09)
[2018-01-29] MEDS: raNITIdine HCL INJ 50 MG in SODIUM CHLORIDE 0.9% 50ML 50 ML IVPB SCH ×2 (01:26→09:52)
[2018-01-29] MEDS: CELECOXIB 100 MG CAP PO SCH (07:23)
[2018-01-29] MEDS: IV SET AND CAP CHANGE INJ INJ SCH (07:38)
[2018-01-29] MEDS: HYDROcodone 5MG/APAP 325MG 1 EA TAB PO PRN (08:23)
[2018-01-29] MEDS: LOSARTAN POTASSIUM 100 MG TAB PO SCH (09:52)
[2018-01-29] MEDS: MULTIPLE VITAMINS W/ MINERALS 1 EA TAB PO SCH (09:52)
[2018-01-29] MEDS: Wellbutrin XL 150 MG TAB PO SCH (09:52)
[2018-01-29] MEDS: MAGNESIUM OXIDE 400 MG TAB PO SCH (09:53)
[2018-01-29] MEDS: hydroCHLOROthiazide 25 MG TAB PO SCH (09:53)
[2018-01-29] MEDS: SODIUM CHLORIDE 0.9% (FLUSH) 10 ML SYG IV SCH (09:53)
[2018-01-29] MEDS: CARVEDILOL 12.5 MG TAB PO SCH (09:53)
[2018-01-29] MEDS: amLODIPine BESYLATE 5 MG TAB PO SCH (09:53)
[2018-01-29] MEDS: CETIRIZINE HCL 10 MG TAB PO SCH (09:53)
[2018-01-29] MEDS: ENOXAPARIN SODIUM 30 MG/0.3 ML SYG SUBCU SCH (10:24)
[2018-01-29] MEDS ORDERED: FISH OIL 1,200 MG CAP PO SCH (11:00)
[2018-01-29 12:31] VITALS: BP 124/74; TEMP 98.5; O2SAT 97
[2018-01-29] MEDS ORDERED: MAGNESIUM HYDROXIDE 30 ML UD PO ONE (21:00)
[2018-01-29] MEDS ORDERED: BISACODYL SUPPOSITORY 10 MG PR ONE (21:00)
--- NOTE | 2018-01-30 09:44 | DS ---
SUPERVISING PHYSICIAN: Hayden Brand MD DATE OF ADMISSION: 01/26/18 DATE OF DISCHARGE: 01/29/18 ADMISSION DIAGNOSES: 1. Immediate postoperative day #0 for elective total right hip arthroplasty. 2. History of severe hip pain failing to respond to outpatient treatment measures requiring intraoperative measures as noted in #1. 3. History of hypertension. 4. History of hyperlipidemia. 5. History of prostate cancer in 2007 diagnosed and treated to cure with surgery. DISCHARGE DIAGNOSES: 1. Postoperative day #4 for elective total right hip arthroplasty. 2. History of severe hip pain requiring surgical intervention as noted in #1 for pain control. 3. Hypertension, stable. 4. History of hyperlipidemia. 5. History of previous prostate cancer in 2007 diagnosed and treated to cure with surgery. 6. Contact dermatitis secondary to adhesive tape, improving with H1, H2 blockade and topical corticosteroids. REASON FOR HOSPITALIZATION: Mr. Candelaria is a 67 year-old male patient that was admitted on 01/26/18 for elective total hip arthroplasty. He has a longstanding history of right hip pain that has progressively worsened over the last several months. Several attempts had been made with conservative measures such as injection, antiinflammatories, however his pain persisted and he was unable to progress to any degree and was actually having to use assistive device to walk and was having great difficulties performing his activities of daily living. Given that he had failed to respond to treatment in an outpatient setting, he requested operative intervention. He was admitted as noted above for elective total hip arthroplasty and had no complications intraoperatively and was followed up in his postoperative phase until discharge to Swing Bed. LABORATORY: Postoperative hemoglobin and hematocrit 12.5 and 36.5. RADIOLOGY: Pelvis and hip x-ray postoperative per radiology interpretation showed satisfactory postoperative image of the right hip placement and intact pelvis and proximal femoral shaft. HOSPITAL COURSE: Mr. Candelaria was admitted as noted above on 01/26/18 for elective total right hip arthroplasty. He had no comprehensive metabolic profiles intraoperatively and was followed in his postoperative phase. He had one minor issue with adhesive tape that caused a rash. This was treated with H1 H2 blockade and topical corticosteroids to successful treatment. He did well with his physical therapy, had good pain control and had no complications and was felt clinically improved enough to continue with management in Swing Bed program for continued physical therapy and rehabilitation given the extent of his previous disabilities and significant significant deconditioning. PLAN: The patient will be discharged from acute care and admitted to the Swing Bed program for ongoing physical therapy and rehabilitation and strengthening efforts. Diet will be regular as tolerated. Activities as per physical therapy. MEDICATIONS: All medications resumed as previous to hospitalization with addition of Xarelto for a total of 35 days including days on acute care. CONDITION ON DISCHARGE: Stable and improved. [facility][id number] [facility]
== END 2018-01-29 12:35 | disposition swing bed (61) | DRG 554 ==
LOC: AMB 05:54 → MS 11:25
PROVIDERS: ADMIT Orthopaedic Surgery; ATTEND Nurse Practitioner Family
DX: M16.11 Unilateral primary osteoarthritis, right hip (principal); I10 Essential (primary) hypertension; E78.5 Hyperlipidemia, unspecified; L25.9 Unspecified contact dermatitis, unspecified cause; Z85.46 Personal history of malignant neoplasm of prostate; Z79.82 Long term (current) use of aspirin

== ENCOUNTER 2018-01-29 12:42 | Inpatient (IN) | payer MEDICARE ==
[2018-01-29] MEDS ORDERED: ACETAMINOPHEN 500 MG TAB PO PRN (14:26)
[2018-01-29] MEDS ORDERED: SODIUM PHOS/BIPHOS ENEMA ADULT 133 ML BTTL PR PRN (14:26)
[2018-01-29] MEDS ORDERED: MAGNESIUM HYDROXIDE 30 ML UD PO PRN (14:26)
[2018-01-29] MEDS: HYDROcodone 5MG/APAP 325MG 1 EA TAB PO PRN ×2 (17:57→20:42)
[2018-01-29] MEDS: TEMAZEPAM 15 MG CAP PO PRN (21:59)
--- NOTE | 2018-01-29 22:07 | PCM.CORE ---
Physician DVT/VTE - Prophylaxis Currently: Patient already on anticoagulation therapy - xarelto - Nurse DVT Assessment & Total Each Risk Factor Represents 5 Points: Elective Arthtroplasty Each Risk Factor Represents 2 Points: Age 60-74, Major Surgery >45 minutes Each Risk Factor is 1 Point: Obesity (BMI >25) DVT Assessment Score: 10 - 5 or more Very High Risk Treatments: Early Ambulation *, Sequential Compression Device
[2018-01-30] MEDS: HYDROcodone 5MG/APAP 325MG 1 EA TAB PO PRN ×5 (04:45→21:57)
[2018-01-30] MEDS: DOCUSATE SODIUM 100 MG CAP PO SCH (09:38)
[2018-01-30] MEDS: RIVAROXABAN 10 MG TAB PO SCH (09:38)
--- NOTE | 2018-01-30 10:01 | HP ---
SUPERVISING PHYSICIAN: Hayden Brand MD REASON FOR ADMISSION: Total right hip arthroplasty requiring ongoing strengthening and rehabilitation, physical therapy. HISTORY OF PRESENT ILLNESS: Mr. Candelaria is a 67 year-old male patient that was admitted on 01/26/18 for elective total hip arthroplasty. He has a longstanding history of right hip pain that has progressively worsened over the last several months. Several attempts had been made with conservative measures such as injection, antiinflammatories, however his pain persisted and he was unable to progress to any degree and was actually having to use assistive device to walk and was having great difficulties performing his activities of daily living. Given that he had failed to respond to treatment in an outpatient setting, he requested operative intervention. He was admitted as noted above for elective total hip arthroplasty and had no complications intraoperatively and was followed up in his postoperative phase until discharge to Swing Bed. PAST MEDICAL HISTORY: 1. Hyperlipidemia. 2. Hypertension. 3. Prostate cancer diagnosed in 2007 with surgical cure. PAST SURGICAL HISTORY: 1. Hernia repair in 2018. 2. Right inguinal. 3. Prostatectomy in 2007. HOME MEDICATIONS: 1. Vistaril 25 mg p.r.n. 2. Prilosec 20 mg as needed. 3. Fish oil 1,000 mg daily. 4. Multivitamins with iron 1 tablet daily. 5. Hyzaar 100/25 mg 1 tablet daily. 6. TriCor 145 mg daily. 7. Flexeril 10 mg as needed. 8. Carvedilol 25 mg b.i.d. 9. Bupropion 300 mg daily. 10. Aspirin 81 mg daily. 11. Amlodipine 5 mg daily. ALLERGIES: NO KNOWN DRUG ALLERGIES. FAMILY HISTORY: Positive for lung and colon cancer. SOCIAL HISTORY: The patient is retired. He is . Lives in [place]. He has never smoked tobacco and drinks a glass of wine throughout the week. Denies any illicit drug use. REVIEW OF SYSTEMS: CONSTITUTIONAL: Denies generalized weakness, malaise, weight change. HEENT: No reported nasal congestion, sinus headaches, ear aches, sore throat. CHEST: No cough, wheezing or shortness of breath. CARDIOVASCULAR: No reported chest pains, edema, palpitations or syncopal episodes. ABDOMEN: No nausea, vomiting, diarrhea, constipation or abdominal pains. EXTREMITIES: As noted in history of present illness. NEUROLOGIC: No reported ataxia, seizures, syncopal episodes or other neurological deficits. INTEGUMENT: Small skin rash secondary to adhesive tape, improving with treatment. PHYSICAL EXAMINATION: VITAL SIGNS: Temperature 98.5, pulse 76, blood pressure 124/74, respirations 16 , saturation 97% on room air. GENERAL: The patient is comfortable, resting, in no acute distress. He has good pain control, has been completing his physical therapy with no complications. He is alert. HEENT: Tympanic membranes clear bilaterally. Oropharynx pink, moist and dry without any lesions. NECK: No jugular venous distention. Supple, non-tender, full range of motion. CHEST: Clear to auscultation, slightly diminished towards the bases bilaterally. No rhonchi, rales, or wheezes. CARDIOVASCULAR: Regular rate and rhythm without appreciable murmurs, rubs, or gallops. ABDOMEN: Obese, soft, non-tender, positive bowel sounds. EXTREMITIES: Right hip has a dressing placed, clean and dry, no ecthyma. No signs of bleeding, no signs of infection. Distal pulses are strong, capillary refill brisk. NEUROLOGIC: Sensations are intact. He is alert and oriented x 3. INTEGUMENT: He has some mild erythemic areas and mild ectopic dermatitis due to tape which is showing to be healing with no complications. LABORATORY/RADIOLOGY: There will be no laboratory or radiology on admission to Swing Bed. ASSESSMENT: 1. Postoperative day #4 for elective total right hip arthroplasty. 2. History of severe hip pain requiring surgical intervention as noted in #1 for pain control. 3. Hypertension, stable. 4. History of hyperlipidemia. 5. History of previous prostate cancer in 2007 diagnosed and treated to cure with surgery. 6. Contact dermatitis secondary to adhesive tape, improving with H1, H2 blockade and topical corticosteroids. PLAN: The patient is admitted to Swing Bed program for ongoing physical therapy and rehabilitation efforts. Will defer orthopedic needs to Dr. Beatty and physical therapy. Will resume his home medications once those are updated and verified. He will be continued on DVT prophylaxis with Xarelto as per protocol for a total fo 35 days including his days on Acute Care. Diet will be regular diet. Will anticipate his length of stay to be at least 3 to 7 days until the patient progressively shows improvement and able to continue with outpatient management. We will continue to monitor and treat appropriately on Swing Bed. #[id number] [facility]
[2018-01-30] MEDS ORDERED: [UNRECOGNIZED DRUG - OTHER] PO SCH (10:15)
[2018-01-30] MEDS ORDERED: LOSARTAN POTASSIUM PO SCH (10:15)
[2018-01-30] MEDS ORDERED: HYDROCHLO PO SCH (10:15)
[2018-01-30] MEDS: LOSARTAN POTASSIUM 100 MG TAB PO SCH (11:22)
[2018-01-30] MEDS: CARVEDILOL 12.5 MG TAB PO SCH ×2 (11:22→20:22)
[2018-01-30] MEDS: MULTIPLE VITAMINS W/ MINERALS 1 EA TAB PO SCH (11:22)
[2018-01-30] MEDS: FISH OIL 1,200 MG CAP PO SCH (11:22)
[2018-01-30] MEDS: amLODIPine BESYLATE 5 MG TAB PO SCH (11:22)
[2018-01-30] MEDS: CETIRIZINE HCL 10 MG TAB PO SCH (11:22)
[2018-01-30] MEDS: hydroCHLOROthiazide 25 MG TAB PO SCH (11:25)
[2018-01-30] MEDS: hydrOXYzine PAMOATE 25 MG CAP PO SCH ×3 (13:16→20:24)
--- NOTE | 2018-01-30 15:13 | PN ---
DATE: 01/30/18 SUBJECTIVE: He continues to improve with regards to his pain. OBJECTIVE: He is afebrile. Vital signs are stable. Wound is clean. There are no signs or symptoms of infection. ASSESSMENT: 1. Status post total hip arthroplasty. PLAN: The plan at this point is for him to continue weightbearing status. He will likely be discharged in the next 1 to 2 days. #[id number] [facility]
[2018-01-30] MEDS: CYCLOBENZAPRINE HCL 10 MG TAB PO PRN (15:58)
[2018-01-30] MEDS: FENOFIBRIC ACID 135 MG CAP PO SCH (20:22)
[2018-01-30] MEDS: OMEPRAZOLE CAP 20 MG CAP PO SCH (20:22)
[2018-01-30] MEDS: ASPIRIN (CHEWABLE) 81 MG TAB PO SCH (20:23)
[2018-01-30] MEDS ORDERED: NON-FORMULARY MEDICATION 1 EA MIS (Fenofibrate [Tricor] 145 MG) PO SCH (21:00)
[2018-01-30] MEDS: TEMAZEPAM 15 MG CAP PO PRN (22:09)
[2018-01-31] MEDS: CYCLOBENZAPRINE HCL 10 MG TAB PO PRN ×3 (01:51→21:42)
[2018-01-31] MEDS: HYDROcodone 5MG/APAP 325MG 1 EA TAB PO PRN ×4 (03:59→18:37)
[2018-01-31] MEDS: FISH OIL 1,200 MG CAP PO SCH (08:36)
[2018-01-31] MEDS: CETIRIZINE HCL 10 MG TAB PO SCH (08:36)
[2018-01-31] MEDS: MULTIPLE VITAMINS W/ MINERALS 1 EA TAB PO SCH (08:36)
[2018-01-31] MEDS: Wellbutrin XL 150 MG TAB PO SCH (08:36)
[2018-01-31] MEDS: LOSARTAN POTASSIUM 100 MG TAB PO SCH (08:36)
[2018-01-31] MEDS: hydrOXYzine PAMOATE 25 MG CAP PO SCH ×4 (08:36→21:49)
[2018-01-31] MEDS: amLODIPine BESYLATE 5 MG TAB PO SCH (08:37)
[2018-01-31] MEDS: RIVAROXABAN 10 MG TAB PO SCH (08:37)
[2018-01-31] MEDS: hydroCHLOROthiazide 25 MG TAB PO SCH (08:37)
[2018-01-31] MEDS: DOCUSATE SODIUM 100 MG CAP PO SCH (08:37)
[2018-01-31] MEDS: CARVEDILOL 12.5 MG TAB PO SCH ×2 (08:37→21:42)
[2018-01-31] MEDS: OMEPRAZOLE CAP 20 MG CAP PO SCH (21:41)
[2018-01-31] MEDS: TEMAZEPAM 15 MG CAP PO PRN (21:41)
[2018-01-31] MEDS: ASPIRIN (CHEWABLE) 81 MG TAB PO SCH (21:42)
[2018-01-31] MEDS: FENOFIBRIC ACID 135 MG CAP PO SCH (21:42)
[2018-02-01] MEDS: HYDROcodone 5MG/APAP 325MG 1 EA TAB PO PRN (07:52)
--- NOTE | 2018-02-01 08:23 | PN ---
DATE: 01/31/18 SUBJECTIVE: Mr. Candelaria is doing well today. His pain is well controlled. OBJECTIVE: Afebrile. Vital signs stable. Wound is clean. There are no signs or symptoms of infection. ASSESSMENT: Status post total hip arthroplasty. PLAN: The plan is to continue with physical therapy today. We will likely discharge him tomorrow. #[id number] [facility]
--- NOTE | 2018-02-01 08:28 | PN ---
DATE: 02/01/18 SUBJECTIVE: Mr. Candelaria is doing really well. He is up to a chair. He has been ambulating. His pain is well controlled. OBJECTIVE: Afebrile. Vital signs stable. Wound is clean. There are no signs or symptoms of infection. ASSESSMENT: Status post total hip arthroplasty. PLAN: The plan at this point is for him to continue with weight-bearing as tolerated. He will likely be discharged to home today. #[id number] [facility] [place]
[2018-02-01] MEDS: Wellbutrin XL 150 MG TAB PO SCH (08:53)
[2018-02-01] MEDS: RIVAROXABAN 10 MG TAB PO SCH (08:53)
[2018-02-01] MEDS: amLODIPine BESYLATE 5 MG TAB PO SCH (08:54)
[2018-02-01] MEDS: CETIRIZINE HCL 10 MG TAB PO SCH (08:54)
[2018-02-01] MEDS: DOCUSATE SODIUM 100 MG CAP PO SCH (08:54)
[2018-02-01] MEDS: CARVEDILOL 12.5 MG TAB PO SCH (08:54)
[2018-02-01] MEDS: LOSARTAN POTASSIUM 100 MG TAB PO SCH (08:54)
[2018-02-01] MEDS: MULTIPLE VITAMINS W/ MINERALS 1 EA TAB PO SCH (08:54)
[2018-02-01] MEDS: hydrOXYzine PAMOATE 25 MG CAP PO SCH (08:54)
[2018-02-01] MEDS: FISH OIL 1,200 MG CAP PO SCH (08:54)
[2018-02-01] MEDS: hydroCHLOROthiazide 25 MG TAB PO SCH (08:54)
[2018-02-01 11:38] VITALS: BP 112/65; TEMP 97; O2SAT 97
--- NOTE | 2018-02-01 11:59 | DS ---
SUPERVISING PHYSICIAN: Shad Galvez MD DISCHARGE DIAGNOSIS: 1. Postoperative day #7 for elective total right hip arthroplasty. 2. History of severe hip pain requiring surgical intervention as noted in #1 for pain control. 3. Hypertension. 4. Hyperlipidemia. 5. History of previous prostate cancer in 2007 diagnosed and treated to cure with surgery. 6. Contact dermatitis secondary to adhesive tape, improve with H1/H2 blockade and topical corticosteroids. HISTORY OF PRESENT ILLNESS: Mr. Candelaria is a 67-year-old male patient that was originally admitted on 01/26/18 for elective total hip arthroplasty. He had a longstanding history of right hip pain that had progressively worsened over the last several months. Conservative measures were tried including injections and antiinflammatories, however his pain persisted enough that he requested Dr. Neil Beatty, orthopedic surgeon, for surgical intervention for elective total hip arthroplasty. He had no problems intraoperatively or postoperatively. He continued with his physical therapy and strengthening. He was discharged on 01/11 from the Acute Care setting and readmitted to Swing Bed for continued strengthening and conditioning with physical therapy. HOSPITAL COURSE: He progressed well with his physical therapy. His pain was under control during his hospital stay. He was started on Xarelto 10 mg daily. He has met his goals and will be discharged home today in stable condition. DISCHARGE PLAN: the patient will be discharged home in stable condition. He is to continue his physical therapy with [facility]'s physical therapy. He will be discharged on his home medications plus Xarelto for 28 days, that would make a total of 35 days of postoperative anticoagulant therapy. He will also be discharged on hydrocodone for pain control and he is to take Colace daily until he no longer requires his pain medication. He had some difficulty sleeping while in the hospital, so he will also be given a prescription for Restoril. He is to followup with Dr. Beatty on 02/15/18 at 9:30 AM. He will return to the hospital or call Dr. Beatty's office for any problems or complications. DISCHARGE MEDICATIONS: 1. Aspirin 81 mg. 2. Norvasc. 3. Prilosec. 4. Multivitamin. 5. Fish oil. 6. Bupropion. 7. Losartan/hydrochlorothiazide. 8. Coreg. 9. TriCor. 10. Hydroxyzine. 11. Cetirizine. 12. Cyclobenzaprine. 13. Hydrocodone. 14. Colace. 15. Xarelto. 16. Restoril. #[id number] [facility]
== END 2018-02-01 11:00 | disposition home or self-care (01) | DRG 561 ==
LOC: MS 12:42
PROVIDERS: ADMIT Nurse Practitioner Family; ATTEND Nurse Practitioner Acute Care
PROC: F07L6ZZ Therapeutic Exercise Treatment of Musculoskeletal System - Lower Back / Lower Extremity (ICD-10-PCS; principal; 2018-01-29)
DX: Z47.1 Aftercare following joint replacement surgery (principal); I10 Essential (primary) hypertension; E78.5 Hyperlipidemia, unspecified; L23.1 Allergic contact dermatitis due to adhesives; G47.00 Insomnia, unspecified; E66.9 Obesity, unspecified; Z79.82 Long term (current) use of aspirin; Z96.641 Presence of right artificial hip joint; Z79.899 Other long term (current) drug therapy; Z85.46 Personal history of malignant neoplasm of prostate; Z68.34 Body mass index [BMI] 34.0-34.9, adult

== ENCOUNTER 2018-08-09 05:04 | Day surgery (SDC) | payer MEDICARE ==
[2018-08-09] MEDS ORDERED: PROPARACAINE 0.5% OPHTH SOL 15 ML BTTL ONE (05:57)
[2018-08-09] MEDS ORDERED: TROP 1%/CYCLOPEN 1%/PHENYL 2% DROPS ONE (05:57)
[2018-08-09] MEDS ORDERED: MIDAZOLAM INJ 2 MG/2 ML VIAL ONE (07:06)
[2018-08-09] MEDS ORDERED: LIDOCAINE 1% MPF 5 ML VIAL INJ ONE (07:22)
[2018-08-09] MEDS ORDERED: DEXAMETHASONE 0.1% OPHTH SOL 1 DROP RIGHT_EYE ONE ×2 (07:34→07:37)
[2018-08-09] MEDS ORDERED: TOBRAMYCIN SULF 0.3 % OPHT SOL 1 DROP RIGHT_EYE ONE ×2 (07:34→07:37)
[2018-08-09] MEDS ORDERED: BRIMONIDINE 0.2% OPHTH DROPS RIGHT_EYE ONE ×2 (07:36→07:37)
== END 2018-08-09 08:15 | disposition home or self-care (01) ==
LOC: AMB 05:04
PROVIDERS: ATTEND Ophthalmology
DX: H26.9 Unspecified cataract (principal); I10 Essential (primary) hypertension; Z79.899 Other long term (current) drug therapy
CPT/HCPCS: 00142; 66984; J2250

== ENCOUNTER 2018-08-23 05:24 | Day surgery (SDC) | payer MEDICARE ==
[2018-08-23] MEDS ORDERED: MOXIFLOXACIN HCL (OPHTH) 1 DROP DROPS ONE (05:46)
[2018-08-23] MEDS ORDERED: PROPARACAINE 0.5% OPHTH SOL 15 ML BTTL ONE (05:46)
[2018-08-23] MEDS ORDERED: TROP 1%/CYCLOPEN 1%/PHENYL 2% DROPS ONE (05:46)
[2018-08-23] MEDS ORDERED: MIDAZOLAM INJ 2 MG/2 ML VIAL ONE (06:53)
[2018-08-23] MEDS ORDERED: LIDOCAINE 1% MPF 5 ML VIAL INJ ONE (07:22)
[2018-08-23] MEDS ORDERED: MOXIFLOXACIN HCL (OPHTH) 1 DROP DROPS LEFT_EYE ONE (07:33)
[2018-08-23] MEDS ORDERED: DEXAMETHASONE 0.1% OPHTH SOL 1 DROP LEFT_EYE ONE (07:34)
[2018-08-23] MEDS ORDERED: BRIMONIDINE 0.2% OPHTH DROPS LEFT_EYE ONE (07:34)
[2018-08-23] MEDS ORDERED: TOBRAMYCIN SULF 0.3 % OPHT SOL 1 DROP LEFT_EYE ONE (07:34)
== END 2018-08-23 08:05 | disposition home or self-care (01) ==
LOC: AMB 05:24
PROVIDERS: ATTEND Ophthalmology
DX: H25.12 Age-related nuclear cataract, left eye (principal); I10 Essential (primary) hypertension; I25.10 Atherosclerotic heart disease of native coronary artery without angina pectoris; K21.9 Gastro-esophageal reflux disease without esophagitis
CPT/HCPCS: 00142; 66984; J2250

== ENCOUNTER → 2019-05-31 | Outpatient (CLI) | payer MEDICARE | LOC: GMAJ 16:01 | PROVIDERS: ATTEND Family Medicine | DX: R21 Rash and other nonspecific skin eruption (principal) ==

== ENCOUNTER → 2019-06-17 | Outpatient (CLI) | payer MEDICARE | END | disposition home or self-care (01) | LOC: GMAJ 11:10 | PROVIDERS: ATTEND Family Medicine | DX: Z85.46 Personal history of malignant neoplasm of prostate (principal); I10 Essential (primary) hypertension; R73.9 Hyperglycemia, unspecified ==

== ENCOUNTER → 2019-12-21 | Outpatient (CLI) | payer MEDICARE | LOC: GMAJ 11:40 | PROVIDERS: ATTEND Family Medicine | DX: Z85.46 Personal history of malignant neoplasm of prostate (principal) ==